=== PATIENT | female | born 1975 | race Caucasian/White ===

== ENCOUNTER → 2016-09-23 | Outpatient (CLI) | payer BC ==
[~2016-09-23] MED LIST: ATV5 PO; EFF/375 PO; LISI20TA3 PO; OPTIRAY 320 IV PRN; PRLSR20 PO
--- NOTE | 2016-09-23 13:46 | DIAGNOSTIC IMAGING REPORT ---
CT OF THE ABDOMEN AND PELVIS WITH CONTRAST CLINICAL HISTORY: Left lower quadrant pain and tenderness. Evaluate for acute diverticulitis. COMPARISON STUDY: None. TECHNIQUE: Following IV administration of 92 mL of [id number], axial images of the abdomen and pelvis were obtained from the lung bases to the proximal femurs. Images were reviewed in the axial, sagittal, and coronal planes. IV contrast was administered without complication. Oral contrast was administered. CT DOSE: 968.72 mGycm FINDINGS: A complex cystic lesion with peripheral calcification within the spleen is likely benign. The adrenal glands, kidneys, liver and pancreas are normal. There is no biliary ductal dilatation status post cholecystectomy. There is no hydronephrosis. There is no evidence for a bowel obstruction. There is an inflamed diverticulum of the distal descending colon with moderate adjacent infiltration. There is no free air or abscess. No lymphadenopathy is present. Incidental note is made of mild dextroscoliosis of the upper lumbar spine. No suspicious skeletal lesions are identified. IMPRESSION: Acute diverticulitis of the distal descending colon. Moderate inflammation. No free air or abscess. Electronically signed by: Michael Schulz M.D. 09/23/2016 1:44 PM Dictated Date/Time: 09/23/2016 1:39 PM
== END | disposition home or self-care (01) ==
LOC: C.CTS 11:09
PROVIDERS: ATTEND Nurse Practitioner Family
DX: K57.32 Diverticulitis of large intestine without perforation or abscess without bleeding (principal)

== ENCOUNTER → 2017-04-02 | Outpatient (CLI) | payer BC ==
[~2017-04-02] MED LIST changes: -OPTIRAY 320 IV PRN
[2017-04-02 12:57] LABS: BASO % 0.6 %; BASO ABS # 0.04 K/uL (0-0.2); COMPLETE YES; EOS % 0.7 %; IG% 0.1 %; LYMPH ABS # 2.34 K/uL (1.2-3.4); MEAN CELL VOLUME 90.1 fL (80-100); MEAN CORPUSCULAR HEMOGLOBIN 31.9 pg (25-34); MEAN CORPUSCULAR HGB CONC 35.3 g/dl (32-36); MEAN PLATELET VOLUME 9.8 fL (7.4-10.4); MONO % 6.4 %; NEUT % 58.2 %; PLATELET COUNT 286 K/uL (130-400); RED BLOOD COUNT 4.77 M/uL (4.2-5.4); WHITE BLOOD COUNT 6.88 K/uL (4.8-10.8)
--- NOTE | 2017-04-02 13:32 | DIAGNOSTIC IMAGING REPORT ---
[facility] CLINICAL HISTORY: 41 years-old Female presenting with ABD PAIN. TECHNIQUE: Single supine view of the abdomen was obtained. COMPARISON: CT from 09/23/2016. FINDINGS: Cholecystectomy clips noted. Mild stool burden in the right colon. Paucity of small bowel gas, nonspecific. No gross pneumoperitoneum. No calcifications project over the renal shadows allowing for the presence of stool. Scoliotic curvature of the thoracolumbar spine. IMPRESSION: 1. Mild stool burden. 2. Paucity of bowel gas, nonspecific. Electronically signed by: Rasta Hernandez M.D. 04/02/2017 1:30 PM Dictated Date/Time: 04/02/2017 1:28 PM
== END | disposition home or self-care (01) ==
LOC: C.RAD 11:53
PROVIDERS: ATTEND Nurse Practitioner Family
DX: R10.13 Epigastric pain (principal); R19.5 Other fecal abnormalities